=== PATIENT | male | born 1980 | race Caucasian/White ===

== ENCOUNTER → 2020-07-29 07:18 | Outpatient (CLI) | payer OTHER, SELFPAY ==
--- NOTE | ~2020-07-29 | XR_ITS ---
EXAMINATION: XR knee LT 2V DATE: 07/29/2020 07:54 INDICATION: Left knee pain. TECHNIQUE: 2 views of left knee were obtained. COMPARISON: Left knee radiographs 06/13/2018 FINDINGS: Bone alignment is normal. No fracture. There is mild tricompartmental osteoarthritis. There are changes of anterior cruciate ligament reconstruction. No knee joint effusion. There is a 2 mm lo ose body in the intercondylar notch. IMPRESSION: 1. Mild left knee osteoarthritis with small loose body. Reviewed, dictated and finalized at location A. NT PARTNER
== END ==
PROVIDERS: PCP Family Medicine; Visit Provider Nurse Practitioner Family
DX: M23.52 Chronic instability of knee, left knee (principal); M17.12 Unilateral primary osteoarthritis, left knee
CPT/HCPCS: 73560

== ENCOUNTER → 2020-08-02 10:00 | Outpatient (CLI) | payer OTHER, SELFPAY ==
--- NOTE | ~2020-08-02 | MR_ITS ---
EXAMINATION: MR knee LT wo con DATE: 08/02/2020 10:50 INDICATION: Left knee pain TECHNIQUE: Magnetic resonance imaging (MRI) of the left knee was performed without intravenous contra st. Sequences included coronal PD-weighted FSE, coronal PD-weighted FS FSE, sagittal T2-weighted FSE , sagittal PD-weighted FS FSE and axial PD weighted fat saturated FSE. COMPARISON: None. FINDINGS: Medial compartment: Complex tear involving both the cephalad and caudal articular surfaces of the posterior horn and post erior body of the medial meniscus. Chondral ulceration and fissuring with mild underlying cortical ir regularity and minimal subarticular edema along the lateral side of the central weightbearing medial femoral condyle. Lateral compartment: Lateral meniscus is normal. Partial-thickness cartilage loss and mild chondral surface irregularity a long the posterior weightbearing lateral femoral condyle. Small marginal osteophyte and additional mi ld subarticular edema along the medial rim of the anterior weightbearing lateral femoral condyle. Sma ll partial-thickness chondral fissure at the posterior aspect of the lateral tibial plateau. Patellofemoral compartment: Partial thickness chondral defect involving up to 50% the cartilage thickness along the inferomedial aspect of the lateral patellar facet. Additional partial thickness chondral ulceration and deep fissu ring without degenerative subchondral changes extending obliquely from the cephalad aspect of the med ial trochlea to the caudal aspect of the trochlear groove and inferomedial aspect of the lateral troc hlea. Ligaments and tendons: Failed anterior cruciate ligament reconstruction with no evident residual intact graft material and w ith mild anterior subluxation of the tibia resulting in increased angulation of the normal posterior cruciate ligament. The medial collateral ligament and fibular collateral ligament complex are normal. Mild distal quadriceps tendinopathy. Patellar tendon is normal. The visualized medial and lateral christine mstring tendons as well as the iliotibial band are normal. Fluid: Small left knee joint effusion. No loose osteochondral bodies identified. Small Villegas's cyst. Osseous/other: Normal marrow signal aside from the previous noted small foci of subarticular edema. Foci of suscepti bility artifact along the femoral and tibial tunnels of the prior anterior cruciate ligament reconstr uction. No fracture or pathologic marrow replacing process. IMPRESSION: 1. Failed anterior cruciate ligament reconstruction. 2. Complex medial meniscal tear. 3. Mild osteoarthritis with regions of high-grade chondromalacia in all 3 compartments, most extensiv e in the patellofemoral compartment. 4. Mild distal quadriceps tendinopathy. 5. Small left knee joint effusion and small Villegas's cyst. Reviewed, dictated and finalized at location B. ST[employer] IMPRESSION: 1. Failed anterior cruciate ligament reconstruction. 2. Complex medial meniscal tear. 3. Mild osteoarthritis with regions of high-grade chondromalacia in all 3 aydin rtments, most extensive in the patellofemoral compartment. 4. Mild distal quadriceps tendinopathy. 5. Small left knee joint effusion and small Villegas's cyst.
== END ==
PROVIDERS: PCP Family Medicine; Visit Provider Nurse Practitioner Family
DX: S83.232A Complex tear of medial meniscus, current injury, left knee, initial encounter (principal); X58.XXXA Exposure to other specified factors, initial encounter
CPT/HCPCS: 73721

== ENCOUNTER 2020-09-13 17:40 | Emergency (ER) | payer OTHER, SELFPAY ==
[2020-09-13 17:42] VITALS: BP 144/90; PULSE 87; RESP 16; TEMP 36.2; O2SAT 100
[2020-09-13 18:02] VITALS: PULSE 88; RESP 19; O2SAT 98
--- NOTE | 2020-09-13 18:03 | PC.NURSE ---
EDPA presented to bedside. Pt presents to ED with complaints of drainage from surgical wound to left duran. Pt states he was in PT today and noted a brownish-red, malodorous drainage. Surgical wound is well approximated and approx 5cm in length. Mild drainage that is brown in color noted from wound. Erythema and moderate swelling noted to left extremity where there is a second 4cm wound. Pt able to tolerate palpation of extremity and does not voice increased pain. Pt denies nvd, fever and chills captain's assistant. Pt states he treated pain captain's assistant with 400mg of ibuprofen. Pt resting comfortably on cart with no complaints at this time. EDPA advised pt of poc and pt voices his understanding. Pt resting on locked cart in its lowest position with call button and personal items within reach. Pt advised to press call button for assistance.
--- NOTE | 2020-09-13 18:11 | PC.NURSE ---
Pain rated 2/10 at this time and pt is refusing pain medication. Advised to call staff if pain increases and pt voices his understanding.
--- NOTE | 2020-09-13 18:13 | ED.GENADULT ---
HPI - General Adult General Chief complaint: Recheck/Abnormal Lab/Rx Stated complaint: left knee incision infection? Time Seen by Provider: 09/13/20 17:59 Source: patient Mode of arrival: ambulatory Limitations: no limitations History of Present Illness HPI narrative: Patient is a 40-year-old male who presents to emergency department for evaluation of some brown drainage from his incision from his ACL repair by Dr. Beck for 2 weeks prior. Patient was at rehab today when it was noticed that he had some drainage from his incision just below his knee patient denies any change in pain erythema fever chills or other complaints Related Data Allergies Allergy/AdvReac Type Severity Reaction Status Date / Time atorvastatin AdvReac Intermediate joint and Verified 09/13/20 17:48 muscle pains, headache Review of Systems Review of Systems: All systems reviewed & are unremarkable except as noted in HPI and below PMFSH Past Medical History Medical History Anterior cruciate ligament complete tear BMI 34.0-34.9,adult BMI 37.0-37.9, adult Complex tear of lateral meniscus, current injury, left knee, subsequent encounter Tear of left anterior cruciate ligament Vitamin D deficiency Surgical History Surgical History History of appendectomy 2009 History of repair of ACL 2015, Dr. Eldridge History of shoulder surgery 2009 Family History Family History Grandparent Hypertension Family history of lung cancer Family history of type 2 diabetes mellitus Other Diabetes mellitus Family history of arthritis Social History Social History Smoking status: Never smoker Second hand tobacco smoke exposure: No Alcohol intake: current Gender identity (if verbalized by the patient): Male Exam Narrative: Exam Narrative: GENERAL: Well-appearing, well-nourished, and in no acute distress. HEAD: Normocephalic, atraumatic. EYES: PERRLA and EOMI. ENT: Nares clear, no rhinorrhea or epistaxis. Mucous membranes moist. EXTREMITIES: Patient with swelling of the left knee postoperatively with some extravasation and bruising down the leg patient's incisions are well approximated there is some dried brown serous drainage around the incision just below the knee no surrounding erythema or fluctuance or streaking unable to express any fluid by manually pressing down on the wound SKIN: Warm, dry, no rash. NEURO: No focal deficits. Alert and oriented x3. Neurovascularly intact PSYCH: Normal mood and affect. Course Course Emergency Course: Patient presented for drainage from the knee that occurred while in therapy no continued drainage patient presents in no distress resting comfortably in the room Consultations Consultation #1: Patient case discussed with orthopedic surgeon Dr. Tapia who would like the patient to follow-up on an outpatient basis as planned and two watch for fever chills or any increasing redness or swelling with no further recommendations other than to watch the wound at this time Date: 09/13/20 Time: 18:25 Vital Signs Vital signs: Vital Signs Temperature 97.2 F L 09/13/20 17:42 Pulse Rate 87 09/13/20 17:42 Respiratory Rate 16 09/13/20 17:42 Blood Pressure 144/90 H 09/13/20 17:42 Pulse Oximetry 100 09/13/20 17:42 Temperature 97.2 F L 09/13/20 17:42 Pulse Rate 88 09/13/20 18:02 Respiratory Rate 19 09/13/20 18:02 Blood Pressure 144/90 H 09/13/20 17:42 Pulse Oximetry 98 09/13/20 18:02 Medical Decision Making MDM Narrative Medical decision making narrative: Patient was evaluated the emergency department for wound check discussion was made with his orthopedic surgeon does not recommend any further treatments at this time would like the patient to watch the wound
--- NOTE | 2020-09-13 18:18 | PC.NURSE ---
Pt states that he had an ACL revision performed approx 2 weeks ago and noted the drainage to duran earlier today.
[2020-09-13 18:51] VITALS: BP 139/85; PULSE 86; RESP 15; TEMP 37.1; O2SAT 98
== END 2020-09-13 18:53 | disposition home or self-care (01) ==
PROVIDERS: Emergency Provider Emergency Medicine; PCP Family Medicine
DX: Z48.01 Encounter for change or removal of surgical wound dressing (principal); E55.9 Vitamin D deficiency, unspecified
CPT/HCPCS: 99281

== ENCOUNTER 2020-12-11 08:10 | Emergency (ER) | payer OTHER, SELFPAY ==
[2020-12-11 08:17] VITALS: BP 132/76; PULSE 77; RESP 18; TEMP 36.2; O2SAT 98
--- NOTE | 2020-12-11 08:17 | ED.URI ---
HPI - URI/Sore Throat General Chief Complaint: Upper Respiratory Infection Stated Complaint: sinus infection Time Seen by Provider: 12/11/20 08:18 Source: patient and RN notes reviewed Mode of arrival: ambulatory Limitations: no limitations History of Present Illness HPI Narrative: 40 yo male presents to the [facility] with C/O productive cough, bilateral ear pain, runny nose, nasal congestion. States it started Wednesday, 4 days ago and every day it has been getting slightly worse. Has taken DayQuil and NyQuil with no relief. Denies fevers. No chest pain or abdominal pain. No nausea vomiting or diarrhea. Related Data Allergies Allergy/AdvReac Type Severity Reaction Status Date / Time atorvastatin AdvReac Intermediate joint and Verified 12/11/20 08:25 muscle pains, headache Review of Systems Review of Systems: All systems reviewed & are unremarkable except as noted in HPI and below Constitutional: Constitutional: Reports no additional constitutional complaints, Denies chills, Denies fatigue, Denies fever(s) and Denies weakness ENT: Reports as per HPI, Reports nasal congestion and Reports sore throat Cardiovascular: Cardiovascular: Reports no additional cardiovascular complaints and Denies chest pain Respiratory: Respiratory: Reports as per HPI, Reports chest congestion, Reports cough, Denies dyspnea and Denies wheezing Gastrointestinal: Gastrointestinal: Reports no additional gastrointestinal complaints, Denies abdominal pain, Denies diarrhea, Denies nausea and Denies vomiting Musculoskeletal: Musculoskeletal: Reports no additional musculoskeletal complaints, Denies back pain, Denies myalgias, Denies arthralgias, Denies joint swelling and Denies muscle cramps Integumentary/Breasts: Skin/Breast: Reports system reviewed and no additional complaints, except as docu and Denies rash Neurologic: Reports system reviewed and no additional complaints, except as documented, Denies dizziness and Denies headache(s) Psychiatric: Psychiatric: Reports no additional psychiatric complaints [facility] Past Medical History Medical History (Updated 12/11/20 @ 08:28 by Ashley Yost) Aftercare following surgery of the musculoskeletal system Anterior cruciate ligament complete tear BMI 34.0-34.9,adult BMI 36.0-36.9,adult BMI 37.0-37.9, adult Body mass index [BMI] 33.0-33.9, adult (05/13/16) Chronic fatigue Complex tear of lateral meniscus, current injury, left knee, subsequent encounter Dietary counseling and surveillance (06/23/18) Gastro-esophageal reflux disease without esophagitis Other chronic pain Other hyperlipidemia Tear of left anterior cruciate ligament Vitamin D deficiency Surgical History Surgical History H/O knee surgery History of appendectomy 2009 History of repair of ACL 2016, Dr. Eldridge History of shoulder surgery 2009 Family History Family History Grandparent Hypertension Family history of lung cancer Family history of type 2 diabetes mellitus Father No problems noted. Mother Blockage of coronary artery bypass vein graft Sibling No problems noted. Other Diabetes mellitus Family history of arthritis Social History Social History Smoking status: Never smoker Second hand tobacco smoke exposure: No Alcohol intake: current Substance use: never Substance use type: does not use Additional occupation/education comments: IT Gender identity (if verbalized by the patient): Male Comments At the time of my signature, I reviewed and agree with the nursing past medical, surgical, social, and family history. There is no relevant family history pertinent to the patient complaint. Exam Const: General: healthy appearing, no acute distress and alert Nutritional Appearance: well nourished Orientation/consciousness: patie
== END 2020-12-11 08:31 | disposition home or self-care (01) ==
PROVIDERS: Emergency Provider Nurse Practitioner; PCP Family Medicine
DX: H66.92 Otitis media, unspecified, left ear (principal); H65.01 Acute serous otitis media, right ear; E55.9 Vitamin D deficiency, unspecified; E78.49 Other hyperlipidemia; K21.9 Gastro-esophageal reflux disease without esophagitis
CPT/HCPCS: 99213; G0463

== ENCOUNTER 2022-12-11 17:40 | Emergency (ER) | payer OTHER, SELFPAY ==
[2022-12-11 17:53] VITALS: BP 136/75; PULSE 96; RESP 16; TEMP 36.5; O2SAT 98
--- NOTE | 2022-12-11 17:58 | ED.EAR ---
HPI - Ear Problem General Chief complaint: Ear Stated complaint: Sinus/Ears Irritation Time Seen by Provider: 12/11/22 17:58 Source: patient Mode of arrival: ambulatory Limitations: no limitations History of Present Illness HPI Narrative: Patient is a 42-year-old male who presents with close to 2 weeks of sinus congestion, sinus pressure, sore throat, cough. Patient states left ear started hurting today. Patient has been taking daily Zyrtec doing saline rinses with no relief. Denies any history of asthma, COPD, bronchitis, pneumonia. Denies any fever, chills, nausea, vomiting, diarrhea. Related Data Home Medications Medication Instructions Recorded Confirmed Zyrtec 10 mg PO DAILY 12/11/22 12/11/22 Allergies Allergy/AdvReac Type Severity Reaction Status Date / Time atorvastatin AdvReac Intermediate joint and Verified 11/13/21 08:15 muscle pains, headache Review of Systems Review of Systems: All systems reviewed & are unremarkable except as noted in HPI and below Constitutional: Constitutional: Denies body ache(s), Denies chills, Denies fatigue, Denies fever(s), Denies headache(s), Denies malaise and Denies weakness Eyes: Eyes: Denies blurry vision, Denies itchy eyes and Denies loss of vision ENT: Reports otalgia, Denies headache(s), Reports nasal congestion, Reports sinus pain, Reports sinus pressure and Reports sore throat Cardiovascular: Cardiovascular: Denies chest pain, Denies irregular heart rhythm and Denies dyspnea Respiratory: Respiratory: Reports cough and Denies dyspnea Gastrointestinal: Gastrointestinal: Denies abdominal pain, Denies diarrhea, Denies nausea and Denies vomiting Musculoskeletal: Musculoskeletal: Denies back pain, Denies myalgias and Denies arthralgias Integumentary/Breasts: Skin/Breast: Denies pruritus and Denies rash Neurologic: Denies headache(s), Denies loss of vision and Denies weakness Psychiatric: Psychiatric: Reports no additional psychiatric complaints Endocrine: Endocrine: Denies fatigue Allergic/Immunologic: Allergic/Immunologic: Denies itchy eyes PMFSH Past Medical History Medical History Aftercare following surgery of the musculoskeletal system Anterior cruciate ligament complete tear BMI 34.0-34.9,adult BMI 36.0-36.9,adult BMI 37.0-37.9, adult Body mass index [BMI] 33.0-33.9, adult (05/13/16) Chronic fatigue Complex tear of lateral meniscus, current injury, left knee, subsequent encounter Dietary counseling and surveillance (06/23/18) Gastro-esophageal reflux disease without esophagitis Other chronic pain Other hyperlipidemia Tear of left anterior cruciate ligament Vitamin D deficiency Surgical History Surgical History H/O knee surgery History of appendectomy 2009 History of repair of ACL 2015, Dr. Eldridge History of shoulder surgery 2009 Family History Family History Grandparent Hypertension Family history of lung cancer Family history of type 2 diabetes mellitus Father No problems noted. Mother Blockage of coronary artery bypass vein graft Sibling No problems noted. Other Diabetes mellitus Family history of arthritis Social History Social History Smoking status: Never smoker Second hand tobacco smoke exposure: No Alcohol intake: current Substance use: never Substance use type: does not use Living arrangements: with family Occupation/Education: occupation Additional occupation/education comments: IT Gender identity (if verbalized by the patient): Male Comments At time of signature, agree with nursing past medical, surgical, social and family history. There is no relevant family history pertinent to the presenting complaint. Exam Const: General: cooperative,
== END 2022-12-11 18:46 | disposition home or self-care (01) ==
PROVIDERS: Emergency Provider Nurse Practitioner Family; PCP Family Medicine
DX: J06.9 Acute upper respiratory infection, unspecified (principal); H66.92 Otitis media, unspecified, left ear; K21.9 Gastro-esophageal reflux disease without esophagitis
CPT/HCPCS: 99213; G0463

== ENCOUNTER 2024-10-04 08:18 | Emergency (ER) | payer OTHER, SELFPAY ==
[2024-10-04 08:31] VITALS: BP 124/75; PULSE 84; RESP 20; TEMP 36.6; O2SAT 98
--- NOTE | 2024-10-04 08:32 | ED_ITS ---
HPI - Skin/Abscess/Foreign Bdy General Chief complaint: Skin/Abscess/Foreign Body Stated complaint: Insect Bite Time Seen by Provider: 10/04/24 08:21 Source: patient and RN notes reviewed Mode of arrival: ambulatory Limitations: no limitations History of Present Illness HPI narrative: 44-year-old male presents to the [facility] complaining of tick bite to the left buttocks. Patient states he was camping about 2 hours away from home when he was bit by a tick approximately 3-5 days ago. He discovered the tick bite approximately 3 days ago while he was in the shower. He is unsure how long the tick was imbedded and he immediately removed the tick and washed it down the shower drain. He reports localized swelling to the tick bite and reports having headaches over the weekend. He does have a history of migraines. He is worried about Lyme disease because the son has had Lyme disease from a tick bite at his own residence. He denies any joint pain, muscle aches, muscle weakness, fever chills, body aches, chills, or any other symptoms. He has not tried any [id number] treatment prior to arrival for his tick bite. Related Data Home Medications ?Medication ?Instructions ?Recorded ?Confirmed ?Last Taken ?Type cetirizine 10 mg capsule (Zyrtec) 10 mg PO DAILY PRN 11/18/23 05/31/24 Unknown History Allergies Allergy/AdvReac Type Severity Reaction Status Date / Time atorvastatin AdvReac Intermediate joint and Verified 10/04/24 08:38 muscle pains, headache Review of Systems Review of Systems: CONSTITUTIONAL: Denies fever, chills, or sweats. EYES: Denies visual changes, redness, or discharge. ENT: Denies rhinorrhea, congestion, sore throat, or otalgia. CARDIOVASCULAR: Denies chest pain, palpitations, or edema. RESPIRATORY: Denies cough or dyspnea. GASTROINTESTINAL: Denies abdominal pain, nausea, vomiting, or diarrhea. GENITOURINARY: Denies dysuria or hematuria. SKIN: Denies rash or itching. Positive for tick bite. MUSCULOSKELETAL: Denies back pain, joint pain, or myalgia. NEUROLOGIC: Denies headache, numbness, or weakness. PSYCHIATRIC: Denies anxiety or depression. All other systems reviewed are negative, except as documented in HPI. [facility] Past Medical History Medical History Aftercare following surgery of the musculoskeletal system Chronic fatigue Dietary counseling and surveillance (06/23/18) Gastro-esophageal reflux disease without esophagitis Other chronic pain Other hyperlipidemia Diabetes mellitus screening Anterior cruciate ligament complete tear Complex tear of lateral meniscus, current injury, left knee, subsequent encounter Tear of left anterior cruciate ligament Vitamin D deficiency Surgical History Surgical History H/O knee surgery History of repair of ACL 2016, Dr. Eldridge History of appendectomy 2009 History of shoulder surgery 2009 Family History Family History Grandparent Hypertension Family history of lung cancer Family history of type 2 diabetes mellitus Father No problems noted. Mother Blockage of coronary artery bypass vein graft Sibling No problems noted. Other Diabetes mellitus Family history of arthritis Social History Social History Smoking status: Never smoker Second hand tobacco smoke exposure: No Alcohol intake: current Substance use: never Substance use type: does not use Living arrangements: with family Occupation/Education: occupation Additional occupation/education comments: IT Gender identity (if verbalized by the patient): Male Comments At the time of my signature, I reviewed and agree with the nursing past medical, surgical, social, and family history. There is no relevant family history pertinent to the patient complaint. Exam Narrative: GENERAL: This is a well-nourished, well-developed adult, in no apparent dis tress. They are non ill-appearing, nontoxic appearing. HEAD: normocephalic, atraumatic. EYES: Sclera clear/white. Vision is grossly intact. EARS: External ears normal. Hearing grossly intact NOSE: External nose normal NECK: Neck supple CARDIOVASCULAR: Regular rate and rhythm without murmurs, gallops, or rubs. RESPIRATORY: Clear to auscultation. Breath sounds equal bilaterally. No wheezes, rales, or rhonchi. SKIN: Left buttocks: There is a tick bite located at the upper medial area of the left buttocks measuring approximately 1.5 cm round with a puncture yanni at the center of the wound. It is erythematous with mild localized swelling. There is no central clearing, no drainage, no area of fluctuance, or induration. NEURO: awake, alert, and oriented to person, place and time. There were no obvious focal neurologic abnormalities. EXTREMITIES: No edema Course Course Level of Care: Express Care Visit Vital Signs Vital signs: Vital Signs Temperature 97.8 F 10/04/24 08:31 Pulse Rate 84 10/04/24 08:31 Respiratory Rate 20 10/04/24 08:31 Blood Pressure 124/75 10/04/24 08:31 Pulse Oximetry 98 10/04/24 08:31 Oxygen Delivery Room Air 10/04/24 08:31 Temperature 97.8 F 10/04/24 08:31 Pulse Rate 84 10/04/24 08:31 Respiratory Rate 20 10/04/24 08:31 Blood Pressure 124/75 10/04/24 08:31 Pulse Oximetry 98 10/04/24 08:31 Oxygen Delivery Room Air 10/04/24 08:31 Reviewed MDM - Skin/Abscess/Foreign Bdy MDM Narrative Medical decision making narrative: Patient took bite occurred in areas does not have a prevalence for Lyme disease or Linda spotted fever. The patient did not identify the tick has when he founded he immediately washed down the shower drain. Patient is currently not having any symptoms other than the localized swelling to the tick bite. There is no central clearing to the tick bite. His son did have a history of Lyme disease so it was decided to give him the prophylactic dose of doxycycline of 200 mg 1 time. The tick bite has been removed approximately less than 72 hours. Anticipatory guidance given. Advised signs/symptoms to go to the ER. Pt is appropriate for outpt treatment and f/u. Differential Diagnosis Differential diagnosis: Likely cellulitis, insect bites and contact dermatitis Critical Care Time Critical Care Time Critical Care Time: No Discharge Plan Discharge Clinical Impression: Tick bite of buttock Qualifiers: Encounter type: initial encounter Qualified Code(s): S30.860A - Insect bite (nonvenomous) of lower back and pelvis, initial encounter Patient Disposition: Home, Self-Care Condition: Stable Instructions: Antibiotic Form, Tick Bite (ED) Additional Instructions: Take doxycycline as prescribed. Please go to the emergency department if you develop worsening symptoms such as headache, abdominal pain, joint pain, muscle pain, muscle weakness, fever, chills, headache, or worsening rash. Follow-up with primary care provider as needed. Your blood pressure was elevated above 120/80 today at urgent care. This puts you above the threshold for follow-up. Please schedule a follow-up with your personal physician as soon as possible for further evaluation and treatment even blood pressures exceeding 120/80 may indicate pre-hypertension. Patient Language: Mauritian Prescriptions: New doxycycline monohydrate 100 mg capsule 200 mg PO ONCE Qty: 2 0RF No Action Zyrtec 10 mg capsule 10 mg PO DAILY PRN lisdexamfetamine [Vyvanse] 60 mg capsule 60 mg PO DAILY Qty: 30 0RF ezetimibe [Zetia] 10 mg tablet 10 mg PO DAILY Qty: 90 0RF Follow-up/Referrals: Henok Low MD [Primary Care Provider] - Time of Disposition: 08:53
== END 2024-10-04 09:03 | disposition home or self-care (01) ==
PROVIDERS: PCP Family Medicine
DX: S30.860A Insect bite (nonvenomous) of lower back and pelvis, initial encounter (principal); W57.XXXA Bitten or stung by nonvenomous insect and other nonvenomous arthropods, initial encounter; K21.9 Gastro-esophageal reflux disease without esophagitis; E78.49 Other hyperlipidemia
CPT/HCPCS: 99213; G0463

== ENCOUNTER 2025-02-08 08:23 | Emergency (ER) | payer OTHER, SELFPAY ==
--- NOTE | ~2025-02-08 | XR_ITS ---
XR foot LT min 3V 02/08/2025 08:58 INDICATION: Left foot pain PROCEDURE: 4 views left foot COMPARISON: No prior studies for comparison. FINDINGS: Fracture, dislocation or subluxation is not identified. There is mild osteoarthritis of the first metatarsal phalangeal joint. Lisfranc joint intact. The soft tissues appear within normal limi ts. No foreign bodies are identified. IMPRESSION: 1: NO ACUTE BONE OR JOINT ABNORMALITY IDENTIFIED. Reviewed, dictated and finalized at location A.
--- NOTE | 2025-02-08 08:31 | ED_ITS ---
HPI - Extremity Injury (Lower) General Chief Complaint: Extremity Injury, Lower Stated Complaint: Left Foot Toe Pain Time Seen by Provider: 02/08/25 08:26 Source: patient Mode of arrival: ambulatory Limitations: no limitations History of Present Illness HPI Narrative: Patient 44-year-old male that presents with left great toe pain for 2 days. Tender on palpation to medial aspect at the base of great toe. Patient states he was canoeing but does not remember an obvious trauma. Denies any history of gout and has not had increase in of red meat or alcohol or any other change in diet. Related Data Allergies Allergy/AdvReac Type Severity Reaction Status Date / Time atorvastatin AdvReac Intermediate joint and Verified 02/08/25 08:40 muscle pains, headache Review of Systems Review of Systems: All systems reviewed & are unremarkable except as noted in HPI and below Constitutional: Constitutional: Denies body ache(s), Denies chills, Denies fatigue, Denies fever(s), Denies headache(s), Denies malaise and Denies weakness Eyes: Eyes: Denies blurry vision, Denies irritation and Denies loss of vision ENT: Denies otalgia, Denies headache(s), Denies nasal discharge, Denies sinus pain and Denies sore throat Cardiovascular: Cardiovascular: Denies chest pain, Denies irregular heart rhythm and Denies dyspnea Respiratory: Respiratory: Denies dyspnea Gastrointestinal: Gastrointestinal: Denies abdominal pain, Denies melena, Denies hematochezia, Denies diarrhea, Denies nausea and Denies vomiting Musculoskeletal: Musculoskeletal: Denies back pain, Denies myalgias, Reports arthralgias and Reports joint swelling Integumentary/Breasts: Skin/Breast: Denies pruritus and Denies rash Neurologic: Denies headache(s), Denies loss of vision and Denies weakness Psychiatric: Psychiatric: Reports no additional psychiatric complaints Endocrine: Endocrine: Denies fatigue PMFSH Past Medical History Medical History Aftercare following surgery of the musculoskeletal system Chronic fatigue Dietary counseling and surveillance (06/23/18) Gastro-esophageal reflux disease without esophagitis Other chronic pain Other hyperlipidemia Diabetes mellitus screening Anterior cruciate ligament complete tear Complex tear of lateral meniscus, current injury, left knee, subsequent encounter Tear of left anterior cruciate ligament Vitamin D deficiency Surgical History Surgical History H/O knee surgery History of repair of ACL 2015, Dr. Eldridge History of appendectomy 2010 History of shoulder surgery 2009 Family History Family History Grandparent Hypertension Family history of lung cancer Family history of type 2 diabetes mellitus Father No problems noted. Mother Blockage of coronary artery bypass vein graft Sibling No problems noted. Other Diabetes mellitus Family history of arthritis Social History Social History Smoking status: Never smoker Second hand tobacco smoke exposure: No Alcohol intake: current Substance use: never Substance use type: does not use Living arrangements: with family Occupation/Education: occupation Additional occupation/education comments: IT Gender identity (if verbalized by the patient): Male Comments At time of signature, agree with nursing past medical, surgical, social and family history. There is no relevant family history pertinent to the presenting complaint. Exam Const: General: cooperative, healthy appearing, comfortable, no acute distress and well nourished Nutritional Appearance: well nourished Orientation/consciousness: patient oriented x3 Limitations: no limitations HENMT: Head: normal to inspection, normocephalic and atraumatic Ears: hearing grossly normal bilaterally and external ears normal Face/Nose/Sinus: Normal external nose present, normal facial exam and face symmetric Face and sinus: normal facial exam and face symmetric Mouth: Yes lip normal Eyes: General: appearance normal, both eyes and all related structures Alignment and Position: alignment normal and position normal Periorbital: periorbital findings normal Eyelids: eyelids normal Pupils: Equal, round and reactive pupils present EOM: EOMs intact bilaterally Neck: Neck: normal visual inspection, full ROM and supple Chest: Chest palpation & inspection: normal inspection of the chest Resp: Effort & Inspection: normal respiratory effort and able to speak in complete sentences Auscultation: clear to auscultation bilaterally Cardio: Rate: regular rate Rhythm: regular rhythm Heart sounds: S1 normal heart sound present and S2 normal heart sound present GI: Inspection: normal to inspection Skin: General skin exam: normal color and no rashes or lesions noted Neuro: General: patient oriented x3 and moves all extremities Cranial nerves: Yes Equal, round and reactive pupils present Speech: normal speech Gait exam (Neuro): Normal gait present Extrem: General: normal to inspection, full ROM and no edema Left lower extremity: ankle Details: normal to inspection and normal ROM; no tenderness, no swelling and achilles tendon exam normal and foot Details: normal capillary refill, tenderness Location: of the great toe Location: at the MTP joint (medial aspect), toes with normal ROM, edema Location: of the great toe Location: at the MTP joint, vascular exam Details: dorsalis pedis pulse present and normal capillary refill, tendon exam active flexion normal of all toes and active extension normal of all toes and other (mild erythema to medial aspect of MTP joint); no unusual warmth Psych: Appearance: grossly normal and well kempt Mental Status: mental status grossly normal Speech and movement: Normal speech and movement present Affect: normal affect Attitude: cooperative Thought process: Normal thought process present Course Course Emergency Course: Patient is aware of diagnosis, understands and agrees to treatment plan. Anticipatory guidance given. Patient agrees to follow-up as directed and is aware of reasons to seek care at the emergency department. Portions of this record may have been created with voice recognition software Level of Care: Express Care Visit Vital Signs Vital signs: Reviewed MDM - Extremity Injury (Lower) MDM Narrative Medical decision making narrative: Discuss use of Rafael wrap or compression sock to out support to the toe and foot to help decrease swelling. Patient states he had both home. Patient walking with crutches that he brought for support. Discussed diet changes. Pt well hydrated appearing, in no respiratory distress, hemodynamically stable. Recommend supportive care. The patient is stable at time of discharge the clinical impression was discussed and the patient was given the opportunity to ask questions, which were addressed as completely as possible given the information available at present. Anticipatory guidance and return to care precautions were discussed and the importance of primary care follow-up was stressed and encouraged. The patient voiced understanding of the plan, indications to return, and the need for follow-up. Exam findings show no acute concerns or changes Patient is appropriate for outpatient treatment and follow-up. Differential Diagnosis Differential diagnosis: Likely fracture of toe and other (Toe sprain, gout, arthritis) Medical Records Attestation: I reviewed the patient's medical records. Imaging Data Radiologist's impression: XR foot LT min 3V 02/08/2025 08:58 INDICATION: Left foot pain PROCEDURE: 4 views left foot COMPARISON: No prior studies for comparison. FINDINGS: Fracture, dislocation or subluxation is not identified. There is mild osteoarthritis of the first metatarsal phalangeal joint. Lisfranc joint intact. The soft tissues appear within normal limits. No foreign bodies are identified. IMPRESSION: 1: NO ACUTE BONE OR JOINT ABNORMALITY IDENTIFIED. 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 Minimize activities that aggravate the condition The RICE protocol. Follow the RICE protocol as soon as possible after your injury: Rest your ankle by not walking on it. Ice should be immediately applied to keep the swelling down. It can be used for 20 to 30 minutes, three or four times daily. Do not apply ice directly to your skin. Compression dressings, bandages or rafael-wraps will immobilize and support your injured foot. Elevate your foot above the level of your heart as often as possible during the first 48 hours. Medication: Take indomethacin as prescribed Please schedule a follow-up visit with your personal physician for further evaluation and treatment within 1week OR If your symptoms persist, change or worsen significantly before you can contact your personal physician then please, without delay, go to the emergency department for further evaluation. Your blood pressure was elevated above 120/80 today at Urgent Care. This puts you above the threshold for follow up visit with a primary care provider. High blood pressure does not usually cause any symptoms, however it may lead to kidney failure, stroke, heart disease just to name a few if untreated . Many people are anxious when seeing a provider or nurse. As a result, you are not diagnosed with hypertension at this time unless your blood pressure is persistently high at two office visits at least one week apart. Some things that can help lower blood pressure are lifestyle modifications, such as light exercise, decreased salt in diet, and weight loss. It is important to follow up with a PCP about this within 1 week. Patient Language: Uzbek Prescriptions: New indomethacin 50 mg capsule 50 mg PO TID 7 Days Qty: 21 0RF Rx Instructions: administer with food or milk No Action lisdexamfetamine [Vyvanse] 60 mg capsule 60 mg PO DAILY Qty: 30 0RF ezetimibe [Zetia] 10 mg tablet 10 mg PO DAILY Qty: 90 0RF Follow-up/Referrals: Henok Low MD [Primary Care Provider] - 3 Days Stand Alone Forms: Work/School Release IP Time of Disposition: 09:11
[2025-02-08 08:33] VITALS: BP 143/90; PULSE 91; RESP 20; TEMP 36.7; O2SAT 94
== END 2025-02-08 09:21 | disposition home or self-care (01) ==
PROVIDERS: Emergency Provider Nurse Practitioner Family; PCP Family Medicine
DX: M19.072 Primary osteoarthritis, left ankle and foot (principal); R22.42 Localized swelling, mass and lump, left lower limb; K21.9 Gastro-esophageal reflux disease without esophagitis; E78.49 Other hyperlipidemia
CPT/HCPCS: 73630; 99213; G0463